=== PATIENT | female | born 1935 | race Caucasian/White ===

== ENCOUNTER 2020-09-17 13:01 | Outpatient (CLI) | payer OTHER, SELFPAY ==
--- NOTE | 2020-09-22 19:30 | WPDPFTINT ---
PFT Procedure Performed PFT Procedure Performed Spirometry with Pre/Post Bronchodilator Plethysmography (Lung Vol) Diffusing Cap (DLCO) Flow Vol Loop PFT Interpretation DOS: 09/17/2020 REQUESTING: Violeta Matos NP REASON FOR TESTING: Shortness of breath PULMONARY FUNCTION TESTS Results are reproducible and reliable. Spirometry: FEV1 is 64% predicted, 1.19 L, mildly decreased. FVC is 78% mildly decreased. The FEV1 / FVC ratio was reduced 61% consistent with airflow obstruction. there is a non statistically significant increase in FEV1 with administration of bronchodilator. Lung volumes: Total lung capacity mildly increased 127%, mild hyperinflation. Residual volume severely increased 184% consistent with air trapping. RV/ TLC increased 71%. Airway resistance increased to 162%. Diffusion: DLCO is 76%, mildly decreased. Flow volume loop: Irregular non-reproducible inspiratory limb. IMPRESSION: Mild obstructive ventilatory impairment with mild hyperinflation and severe air trapping, and mild diffusion impairment. No response to bronchodilator. Lack of response to bronchodilator should not preclude use if clinically indicated. This pattern is consistent with emphysema. Susana Rivas MD
== END 2020-09-17 13:02 | disposition home or self-care (01) ==
PROVIDERS: PCP Nurse Practitioner Family; Visit Provider Nurse Practitioner Family
DX: R06.02 Shortness of breath (principal); R94.2 Abnormal results of pulmonary function studies
CPT/HCPCS: 94060; 94726; 94729

== ENCOUNTER 2021-04-06 13:18 | Outpatient (CLI) | payer OTHER, SELFPAY ==
--- NOTE | ~2021-04-06 | CT_ITS ---
EXAMINATION: CT diagnostic chest wo con EXAM DATE: 04/06/2021 14:03 INDICATION: R93.89 - Abnormal findings on diagnostic imaging of other... Abnormal chest x-ray. TECHNIQUE: Spiral CT of the chest without contrast. Axial, coronal and sagittal images of the chest were reviewed. Coronal maximum intensity pixel images of chest reviewed. The dose-length product ( DLP) for this examination was 129.53 mGy-cm. The exposure was tailored according to patient size (au to mA exposure control), and iterative reconstruction (ASIR) was used as additional dose reduction [place]. There is no prior study for comparison. FINDINGS: There is 6 mm right lower lobe calcified nodule, granuloma. There are no pleural or peric ardial effusions. Some scattered regions of bibasilar segmental endobronchial debris. There is mild to moderate emphysema and hyperinflation. Some linear regions of post infectious residua. There is a ortic arteriosclerosis. There is no mediastinal, hilar or axillary lymphadenopathy. There is no pn eumothorax. Mild cardiomegaly. Dense coronary artery calcifications and probable right coronary ar terial stent. There is small sliding gastroesophageal hiatal hernia. There is thoracic spondylosis w ithout osteoblastic or osteolytic lesions identified. IMPRESSION: 1. Scattered postinfectious residua. 2. Some basilar segmental endobronchial debris. 3. Mild to moderate emphysema and hyperinflation. Reviewed, dictated and finalized at location G. ERCIAL APPRAISER
== END 2021-04-06 13:19 | disposition home or self-care (01) ==
PROVIDERS: PCP Family Medicine; Visit Provider Nurse Practitioner
DX: R93.89 Abnormal findings on diagnostic imaging of other specified body structures (principal); J43.9 Emphysema, unspecified; R91.8 Other nonspecific abnormal finding of lung field
CPT/HCPCS: 71250

== ENCOUNTER → 2021-05-30 00:12 | Outpatient (CLI) | payer OTHER, SELFPAY ==
[2021-05-30 14:10] LABS: Influenza A QL RT-PCR Negative (Negative); Influenza B QL RT-PCR Negative (Negative); SARS-CoV-2 RNA PCR Negative
== END ==
PROVIDERS: PCP Family Medicine; Visit Provider Nurse Practitioner
DX: R68.89 Other general symptoms and signs (principal); Z20.822 Contact with and (suspected) exposure to COVID-19
CPT/HCPCS: 87502; C9803; U0003; U0005

== ENCOUNTER 2021-06-09 14:44 | Outpatient (CLI) | payer OTHER, SELFPAY ==
--- NOTE | ~2021-06-09 | XR_ITS ---
EXAMINATION: XR chest 2V DATE: 06/09/2021 15:10 INDICATION: Cough TECHNIQUE: PA and lateral views of the chest are obtained. COMPARISON: CT, 04/06/2021 FINDINGS: There are airspace opacities in the right upper lobe. The lungs are hyperinflated. There is no pleural effusion or pneumothorax. The cardiomediastinal silhouette is normal. There is mild thora cic spondylosis. IMPRESSION: 1. Right upper lobe airspace opacities, likely pneumonia given the absence of suspicious findings on the recent comparison CT. Reviewed, dictated and finalized at location A. IMPRESSION: 1. Right upper lobe airspace opacities, likely pneumonia given the absence of s uspicious findings on the recent comparison CT.
== END 2021-06-09 14:45 | disposition home or self-care (01) ==
PROVIDERS: PCP Family Medicine; Visit Provider Nurse Practitioner
DX: R05.9 Cough, unspecified (principal); R91.8 Other nonspecific abnormal finding of lung field
CPT/HCPCS: 71046